=== PATIENT | female | born 1930 | race Asian ===

== ENCOUNTER 2017-04-12 05:45 | Day surgery (SDC) | payer MEDICARE ==
[~2017-04-12] VITALS: Ht 152.4 cm; Wt 49.5 kg
[~2017-04-12 05:45] MED LIST: CALC1TAB PO; CART1TAB4 PO; FURO20TA3 PO; IRBE150T25 PO; LORA10TA62 PO; METO50TA82 PO; MULT-6 PO; RANI150T8 PO; SPIR50TA2 PO
[2017-04-12] MEDS ORDERED: LACTATED RINGERS 1,000 ML IV SCH (06:50)
[2017-04-12 06:51] VITALS: BP 111/75
[2017-04-12] MEDS ORDERED: LIDOCAINE 1%, 2ML SQ PRN (07:00)
[2017-04-12] MEDS ORDERED: MIDAZOLAM 1 MG/ML, 2ML ONE (07:21)
[2017-04-12] MEDS ORDERED: PROPOFOL 10 MG/ML, 20ML ONE (08:08)
[2017-04-12] MEDS ORDERED: FENTANYL PF 100 MCG/2ML IV PRN (08:30)
[2017-04-12] MEDS ORDERED: ONDANSETRON 2MG/ML, 2ML IVPush PRN (08:30)
[2017-04-12] MEDS ORDERED: PROMETHAZINE 25 MG/ML, 1ML IV PRN (08:30)
[2017-04-12] MEDS ORDERED: ACETAMINOPHEN 325 MG TABLET PO PRN (08:30)
[2017-04-12] MEDS ORDERED: LABETALOL 5MG/ML, 20ML IV PRN (08:30)
[2017-04-12] MEDS ORDERED: ALBUTEROL SULFATE 2.5 MG/3 ML NPPB PRN (08:30)
[2017-04-12] MEDS ORDERED: METOPROLOL 1 MG/ML, 5ML IV PRN (08:30)
[2017-04-12] MEDS ORDERED: EPHEDRINE 50 MG/ML, 1ML IVPush PRN (08:30)
[2017-04-12] MEDS ORDERED: HYDROmorphone 1 MG/ML, 1ML IV PRN (08:30)
[2017-04-12] MEDS ORDERED: OXYcodone 5 MG/5 ML ORAL.SOL UDC PO PRN (08:30)
[2017-04-12] MEDS ORDERED: hydrALAzine 20 MG/ML, 1ML IV PRN (08:30)
== END 2017-04-12 12:20 | disposition home or self-care (01) ==
LOC: OUT 05:45
PROVIDERS: ATTEND Internal Medicine Geriatric Medicine
DX: C16.9 Malignant neoplasm of stomach, unspecified (principal); R18.8 Other ascites; I45.10 Unspecified right bundle-branch block; I10 Essential (primary) hypertension; E11.9 Type 2 diabetes mellitus without complications; I08.1 Rheumatic disorders of both mitral and tricuspid valves; Z86.19 Personal history of other infectious and parasitic diseases; Z85.028 Personal history of other malignant neoplasm of stomach; Z88.6 Allergy status to analgesic agent; Z88.8 Allergy status to other drugs, medicaments and biological substances
CPT/HCPCS: 43237; J2250; J2704; J7120